=== PATIENT | male | born 1960 | race Caucasian/White ===

== ENCOUNTER → 2018-01-05 | Outpatient (CLI) | payer OTHER ==
[~2018-01-05] MED LIST: AMOX-559 PO; CEPH500C24 PO; CIPR-344 PO; DICL100G39 TOP; EZET1TAB53 PO; FLUT9.9S; GUAI120L3 PO; HYDR-4309 PO; KET10 PO; OMEP-218 PO; ONDA4TAB97 PO; OXYC-865 PO; SIMV-54 PO; TAMS0.4C70 PO
== END ==
LOC: SPU 08:23
DX: R97.20 Elevated prostate specific antigen [PSA] (principal)
CPT/HCPCS: 36415; 84153

== ENCOUNTER 2018-01-11 08:56 | Outpatient (RCR) | payer OTHER ==
[2017-11-16 08:26] VITALS: BP 124/74
--- NOTE | 2017-11-16 17:11 | ONCOLOGY FOLLOW UP NOTE ---
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 INTERIM HISTORY Rafa returns to clinic for a follow-up visit today. He is accompanied by his . In general, he reports that things are going quite well. Since our last visit, he underwent additional surgical resection with Dr. Salinas at the [facility], [facility]. In addition, he underwent HIPEC. He was in the hospital for about 10 days, and he has been home since that time. He feels that his recovery has been fairly uneventful. He is regaining strength and has returned to near-normal physical activity. He is starting to exercise more. He reports no problems with constipation or diarrhea. He denies abdominal pain. His appetite is good, and his weight has been stable. He has had no shortness of breath, chest pain, or cough. He is here with questions about his final pathology, as well as recommendations made from the GI Multidisciplinary Clinic at [facility]. REVIEW OF SYSTEMS Otherwise negative, and all systems were reviewed. ONCOLOGY HISTORY 1. 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 a. Initial presentation with urinary symptoms in 2016; subsequent diagnosis of urinary retention, placement of a catheter, and abdominal/pelvic imaging. b. January 23, 2017, CT abdomen and pelvis: Moderate distention of urinary bladder with probable associated mild dilation of ureters, prostatomegaly, enlarged appendix without evidence of acute inflammation; hypoattenuating structure near the tip of the appendix could represent small mucocele. c. June 23, 2017, CT abdomen and pelvis: No evidence of ureteral obstruction or stones, enlarged prostate gland; dilated appendix without inflammatory change; fluid density at tip of appendix once again noted, concerning for mucocele, although appendiceal neoplasm is not excluded. d. August 02, 2017: Patient undergoes appendectomy. Pathology: Appendectomy specimen reveals adenocarcinoma with signet ring cell and mucinous features, poorly differentiated, with appendiceal rupture and extramural mucin deposition; no definitive lymphovascular invasion; perineural invasion is identified; resection margin is indeterminate. e. September 30, 2017: Patient undergoes laparoscopic-assisted tumor debulking and HIPEC. 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 The proximal, distal, and mesenteric margins of resection were uninvolved. Thirty-three lymph nodes were negative for carcinoma. Background cecum and ilium with serosal adhesions were otherwise histologically unremarkable. The omentum showed no evidence of malignancy. Peritoneum of the right inguinal region via peritonectomy shows no viable metastatic carcinoma. Additional peritoneal samples reveal only a hyalinized nodule with entrapped smooth muscle elements with possible hamartoma or traumatic neuroma, but negative for metastatic carcinoma. A nodule of the transverse colon showed only mature lobulated adipose. Of note, his case was reviewed extensively at the GI Multidisciplinary Conference at the [facility], and although there had been some concern for M1 disease based on acellular tissue, the final staging of this tumor is pT4 pN0 M0. PAST MEDICAL HISTORY 1. Benign prostatic hyperplasia. 2. Hyperlipidemia. ALLERGIES TETRACYCLINE. SOCIAL HISTORY The patient is a nonsmoker, and he rarely drinks alcohol. There is no history of illicit drug use. He lives with his , who accompanies him today. They have three teenage children. FAMILY HISTORY The patient's father in his 80s. He had a history of diabetes, and reportedly of intracranial hemorrhage. His grandfather of colon cancer in his 60s. He has three children, including one 16-year-old as well as 13-year-old twins. VITAL SIGNS Temperature is 96.5, blood pressure 124/74, heart rate is 90, respirations 16, oxygen saturation 92% on room air. Weight is 79.8 kg. PHYSICAL EXAMINATION GENERAL: Patient is alert and oriented x3, in no apparent distress sitting in the exam room chair. He appears healthy. He is interactive and quite pleasant. HEENT: Exam reveals anicteric sclerae. No significant oropharyngeal lesions. SKIN: Exam reveals no concerning rash or lesions. NEUROLOGIC: Exam is grossly nonfocal and his gait is normal. EXTREMITIES: Exam reveals no edema, clubbing or cyanosis. There is no erythema or tenderness to palpation. LABORATORY STUDIES Reviewed per the [facility] and [facility] records. IMAGING AND PATHOLOGY Reviewed per the [facility] medical record. Please see Oncology History. 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 I had a good visit with Rafa and his today. Symptomatically, he is doing remarkably well. He has recovered in large part from his debulking surgery and HIPEC. We spent a good detail of time today discussing his pathology report, and recommendations made by the team at the [facility]. After extensive review, his final pathology from his recent surgery reveals evidence of pT4 N0 disease, with 33 lymph nodes removed. Although there had been some concern for potential M1 disease based on particular findings, the feeling is that his surgical specimen and presentation are most consistent with M0 disease. There had been some consideration of adjuvant systemic chemotherapy. At this point, the risk and toxicity of chemotherapy very likely outweighs any potential benefit that he could get from it. We discussed again the nature of this malignancy, and the fact that no lymph node involvement was found (which is not surprising), is encouraging. We moved on to discuss our plans for surveillance. He has had a repeat CT scan ordered for next month. I am not particularly certain whether he will be going to the [facility] for this CT scan. As discussed, we would be more than happy to have those performed here in [facility] [place], but we would want to have the results (both report and images) sent to Dr. Salinas for review. We will get this figured out in the interim. I would like to see him back for followup in two months after repeat labs to touch base and to be sure that things continue to go well. The patient and his had multiple insightful and appropriate questions for me today. I believe I answered all of their questions to their satisfaction. I spent a total of 30 minutes of time face to face with the patient today, and 25 minutes of this was spent in direct counseling and coordination of care. JACK
[2018-01-05 08:49] LABS: PLATELET COUNT, AUTOMATED 134 K/uL (150-450)
[2018-01-05 09:51] VITALS: BP 121/73
--- NOTE | 2018-01-05 16:29 | RADIOLOGY IMAGING REPORT ---
FACILITY: [facility] - [place] PATIENT NAME: Rafa Melgar : 1960 MR: [id number] V: [id number] EXAM DATE: ORDERING PHYSICIAN: VERITO YANES TECHNOLOGIST: Location: [facility] [place] Patient: Rafa Melgar : 1960 Visit/Account:[id number] Date of Sevice: 01/05/2018 EXAMINATION: CT Chest Without and With Contrast CT Abdomen Without and With Contrast CT Pelvis Without and With Contrast 01/05/2018 10:00 AM HISTORY: Appendix carcinoma. TECHNIQUE: Spiral scan was obtained through the chest, abdomen and pelvis before and during injecti on of nonionic iodinated intravenous contrast. Contrast: 75 mL of IV Isovue 370. One of the following dose optimization techniques was utilized in the performance of this exam: Autom ated exposure control; adjustment of the mA and/or kV according to the patient's size; or use of an i terative reconstruction technique. Specific details can be referenced in the facility's radiology C T exam operational policy. COMPARISON STUDIES: CT without contrast 06/23/2017. FINDINGS: CHEST: Lungs / pleura: negative Mediastinum / rom: negative Heart / pericardium: negative Vessels: negative Musculoskeletal / Body wall: negative Lymph node assessment: negative Lower neck: negative ABDOMEN AND PELVIS: Liver / biliary: There are a few geographically marginated areas of hyperenhancement along the junctu re of the right and left lobes superiorly and inferiorly as well as in the lateral segment of the lef t lobe. No well-defined metastatic lesion. Pancreas: negative Spleen: negative Adrenal glands: negative Kidneys / retroperitoneum: negative Pelvic structures: Slight prominence of the prostate again shown. Bowel / peritoneum / mesenteries: Status post resection along the cecal tip. No local residual/recur rent mass. No acute bowel finding otherwise. Mild diverticulosis of the descending and sigmoid colo n. No peritoneal/omental nodularity. No ascites. 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 Lymph node assessment: negative IMPRESSION: 1. Postsurgical changes along the cecal tip. No local residual or recurrent mass. 2. No evidence of metastatic disease in the chest, abdomen, or pelvis. Report Dictated By: Saqib Knapp MD at 01/05/2018 4:15 PM Report E-Signed By: Saqib Knapp MD at 01/05/2018 4:25 PM WSN:[email or web address]
[~2018-01-11] VITALS: Ht 185.4 cm; Wt 83.9 kg
[~2018-01-11 08:56] MED LIST changes: +IOPAMIDOL 76% 75 ML INFUS BTL 75 ML ONE
[2018-01-11 09:04] VITALS: BP 119/75
[2018-01-11] MEDS ORDERED: IBUP600T22 PO (09:07)
--- NOTE | 2018-01-11 17:56 | ONCOLOGY FOLLOW UP NOTE ---
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 INTERIM HISTORY Rafa returns to clinic for a follow-up visit today. He is accompanied by his . He reports that he has been doing quite well. He has been doing a lot of work, including very strenuous physical labor. He reports no abdominal pain or changes in bowel habits. His appetite is good, and his weight has been stable. He has had some ongoing musculoskeletal pain on and off. He denies shortness of breath, chest pain, and productive cough. For the most part, his energy is quite good. He denies new urinary symptoms. He has had a CT scan performed for surveillance after undergoing surgery and HIPEC, and he and his are here to review the results. REVIEW OF SYSTEMS Otherwise negative, and all systems were reviewed. ONCOLOGY HISTORY 1. 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 a. Initial presentation with urinary symptoms in 2016; subsequent diagnosis of urinary retention, placement of a catheter, and abdominal/pelvic imaging. b. January 23, 2017, CT abdomen and pelvis: Moderate distention of urinary bladder with probable associated mild dilation of ureters, prostatomegaly, enlarged appendix without evidence of acute inflammation; hypoattenuating structure near the tip of the appendix could represent small mucocele. c. June 23, 2017, CT abdomen and pelvis: No evidence of ureteral obstruction or stones, enlarged prostate gland; dilated appendix without inflammatory change; fluid density at tip of appendix once again noted, concerning for mucocele, although appendiceal neoplasm is not excluded. d. August 02, 2017: Patient undergoes appendectomy. Pathology: Appendectomy specimen reveals adenocarcinoma with signet ring cell and mucinous features, poorly differentiated, with appendiceal rupture and extramural mucin deposition; no definitive lymphovascular invasion; perineural invasion is identified; resection margin is indeterminate. e. September 30, 2017: Patient undergoes laparoscopic-assisted tumor debulking and HIPEC. 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 The proximal, distal, and mesenteric margins of resection were uninvolved. Thirty-three lymph nodes were negative for carcinoma. Background cecum and ilium with serosal adhesions were otherwise histologically unremarkable. The omentum showed no evidence of malignancy. Peritoneum of the right inguinal region via peritonectomy shows no viable metastatic carcinoma. Additional peritoneal samples reveal only a hyalinized nodule with entrapped smooth muscle elements with possible hamartoma or traumatic neuroma, but negative for metastatic carcinoma. A nodule of the transverse colon showed only mature lobulated adipose. Of note, his case was reviewed extensively at the GI Multidisciplinary Conference at the [facility], and although there had been some concern for M1 disease based on acellular tissue, the final staging of this tumor is pT4 pN0 M0. f. January 05, 2018, CT chest, abdomen and pelvis: Postsurgical changes along cecal tip, no local residual or recurrent mass. There is no evidence of metastatic disease in the chest, abdomen or pelvis. PAST MEDICAL HISTORY 1. Benign prostatic hyperplasia. 2. Hyperlipidemia. ALLERGIES TETRACYCLINE. SOCIAL HISTORY The patient is a nonsmoker, and he rarely drinks alcohol. There is no history of illicit drug use. He lives with his , who accompanies him today. They have three teenage children. FAMILY HISTORY The patient's father in his 80s. He had a history of diabetes, and reportedly of intracranial hemorrhage. His grandfather of colon cancer in his 60s. He has three children, including one 16-year-old as well as 13-year-old twins. MEDICATIONS 1. Ketoralac p.r.n. 2. Simvastatin 40 mg p.o. daily. 3. Tamsulosin 0.4 mg p.o. daily. VITAL SIGNS Temperature is 97.6, blood pressure 119/75, heart rate is 81, respirations 16, oxygen saturation 96% on room air. Weight is 83.9 kg. PHYSICAL EXAMINATION GENERAL: Patient is alert and oriented x3, in no apparent distress sitting in the exam room chair. He appears quite healthy and is in good spirits. HEENT: Exam reveals anicteric sclerae. SKIN: Exam reveals no concerning rash or lesion. NEUROLOGIC: Exam is grossly nonfocal and his gait is normal. EXTREMITIES: Exam reveals no edema, clubbing or cyanosis. There is no erythema or tenderness to palpation. LABORATORY STUDIES Reviewed per the [facility] record. IMAGING AND PATHOLOGY Please see Oncology History. 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 I had a good visit with Rafa and his today. Symptomatically, he continues to do quite well. He has no signs or symptoms to suggest recurrence of his appendiceal malignancy. He has been quite active. We spent time today reviewing his follow-up CT scan. This study shows no evidence of recurrence. He was very happy to hear this. We also reviewed his labs. These are entirely unremarkable. We moved on to discuss our plan for surveillance moving forward. I have recommended that he have repeat imaging with CT scan in three months, as well as labs, and to have him follow up with me to review the results. He is in agreement with this plan. JACK
== END 2018-01-11 15:07 | disposition home or self-care (01) ==
LOC: ONC 08:56
PROVIDERS: ATTEND Internal Medicine Medical Oncology
DX: Z85.89 Personal history of malignant neoplasm of other organs and systems (principal)
CPT/HCPCS: 36415; 71270; 72194; 74170; 82378; 85025; 86316; 99212; Q9967; 82040; 82247; 82310; 82374; 82435; 82565; 82947; 84075; 84132; 84155; 84295; 84450; 84460; 84520

== ENCOUNTER → 2018-04-17 | Outpatient (CLI) | payer OTHER ==
[~2018-04-17] MED LIST changes: +IBUP600T22 PO; -IOPAMIDOL 76% 75 ML INFUS BTL 75 ML ONE
--- NOTE | 2018-04-17 10:45 | RADIOLOGY IMAGING REPORT ---
FACILITY: [facility] [place] PATIENT NAME: Rafa Melgar : 1960 MR: [id number] V: [id number] EXAM DATE: ORDERING PHYSICIAN: KAYLYNN NELSON TECHNOLOGIST: Location: [facility] [place] Patient: Rafa Melgar : 1960 Visit/Account:[id number] Date of Sevice: 04/17/2018 US SINGLE ORGAN HISTORY: Incomplete bladder emptying COMPARISON: CT chest seven pelvis April 03, 2018 FINDINGS: Urinary bladder prevoid volume was 99 mL. The post void residual was 56 mL. Bilateral ureteral jets are present The prostate gland appears prominent and extremely heterogeneous IMPRESSION: Post void bladder residual 56 mL Prostate gland appears prominent and extremely heterogeneous Report Dictated By: Bria Zee MD at 04/17/2018 10:39 AM Report E-Signed By: Bria Zee MD at 04/17/2018 10:41 AM WSN:[id number]
== END ==
LOC: US 07:15
DX: N40.1 Benign prostatic hyperplasia with lower urinary tract symptoms (principal); R33.9 Retention of urine, unspecified
CPT/HCPCS: 76705

== ENCOUNTER 2018-05-04 08:50 | Outpatient (RCR) | payer OTHER ==
[2018-04-03 10:26] VITALS: BP 121/76
[2018-04-03 10:40] LABS: PLATELET COUNT, AUTOMATED 140 K/uL (150-450)
--- NOTE | 2018-04-03 15:37 | RADIOLOGY IMAGING REPORT ---
FACILITY: [facility] - [place] PATIENT NAME: Rafa Melgar : 1960 MR: [id number] V: [id number] EXAM DATE: ORDERING PHYSICIAN: VERITO YANES TECHNOLOGIST: Location: [facility] [place] Patient: Rafa Melgar : 1960 Visit/Account:[id number] Date of Sevice: 04/03/2018 CHEST/AB/PELV W/CONTRAST HISTORY: Appendix cancer ADDITIONAL HISTORY: None. TECHNIQUE: Following administration of IV contrast axial images acquired through the chest abdomen a nd pelvis during the portal venous phase. Coronal and sagittal reformatting was also performed. Dose Lowering Technique One of the following dose optimization techniques was utilized in the performance of this exam: Autom ated exposure control; adjustment of the mA and/or kV according to the patient's size; or use of an i terative reconstruction technique. Specific details can be referenced in the facility's radiology C T exam operational policy. CONTRAST: 75 mL Isovue-370 COMPARISON: January 05, 2018 FINDINGS: CHEST: Lungs/Pleura: Negative. Mediastinum/lymph nodes: Negative. Heart/vessels: Negative. Bones/soft tissues: Negative ABDOMEN AND PELVIS: Hepatobiliary: Negative. Spleen: Negative. Pancreas: Negative. Adrenals: Negative. Kidneys ureters and bladder : Negative. Genitalia: Prostate gland is mildly prominent and heterogeneous GI: Esophagus is distended with air and fluid suggesting gastroesophageal reflux. There are scatte red diverticula in the left-sided colon although no CT evidence of acute diverticulitis. There are p ostsurgical changes adjacent to the cecum Vessels/spaces/nodes: Negative. Bones/soft tissues: No aggressive appearing bone lesions. Spondylolysis at L5 with a grade 1 anteri or spondylolisthesis of L5 with respect S1 Additional findings: None pertinent. IMPRESSION: Post surgical changes adjacent to the cecum The esophagus is distended with fluid and air suggesting gastroesophageal reflux disease Diverticulosis left-sided colon although no CT evidence of acute diverticulitis Report Dictated By: Bria Zee MD at 04/03/2018 2:44 PM Report E-Signed By: Bria Zee MD at 04/03/2018 3:33 PM WSN:[email or web address]
[~2018-05-04 08:50] MED LIST changes: +DEXTROSE 5%(*) 100 ML BAG 100 ML IVPB PRN; +IOPAMIDOL 76% 75 ML INFUS BTL 0 ML ONE; +IOPAMIDOL 76% 75 ML INFUS BTL 75 ML ONE; +LIDOCAINE/SOD BICARB 8.4% SYR ID PRN; +NS(*) 0.9% 100 ML BAG 100 ML IVPB PRN
[2018-05-04 08:57] VITALS: BP 119/67
--- NOTE | 2018-05-04 18:40 | ONCOLOGY FOLLOW UP NOTE ---
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 INTERIM HISTORY Rafa returns to clinic for a follow-up visit today. He is accompanied by his . Since our last visit, he feels that he has been doing pretty well in general. He reports that he has had some stress at home, but this has been manageable. He continues to stay quite busy. His is concerned that he is potentially having a little bit more problem with his memory over time. Rafa is not particularly concerned about this, however. He reports no new pain. His appetite is good, and his weight has been stable. He has had no recent changes in his bowel habits. He denies melena and hematochezia. His breathing is comfortable. He tends to sleep fairly well. He has undergone a follow-up CT scan and labs, and he is here to review the results. REVIEW OF SYSTEMS Otherwise negative, and all systems were reviewed. ONCOLOGY HISTORY 1. 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 a. Initial presentation with urinary symptoms in 2016; subsequent diagnosis of urinary retention, placement of a catheter, and abdominal/pelvic imaging. b. January 23, 2017, CT abdomen and pelvis: Moderate distention of urinary bladder with probable associated mild dilation of ureters, prostatomegaly, enlarged appendix without evidence of acute inflammation; hypoattenuating structure near the tip of the appendix could represent small mucocele. c. June 23, 2017, CT abdomen and pelvis: No evidence of ureteral obstruction or stones, enlarged prostate gland; dilated appendix without inflammatory change; fluid density at tip of appendix once again noted, concerning for mucocele, although appendiceal neoplasm is not excluded. d. August 02, 2017: Patient undergoes appendectomy. Pathology: Appendectomy specimen reveals adenocarcinoma with signet ring cell and mucinous features, poorly differentiated, with appendiceal rupture and extramural mucin deposition; no definitive lymphovascular invasion; perineural invasion is identified; resection margin is indeterminate. e. September 30, 2017: Patient undergoes laparoscopic-assisted tumor debulking and HIPEC. 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 The proximal, distal, and mesenteric margins of resection were uninvolved. Thirty-three lymph nodes were negative for carcinoma. Background cecum and ilium with serosal adhesions were otherwise histologically unremarkable. The omentum showed no evidence of malignancy. Peritoneum of the right inguinal region via peritonectomy shows no viable metastatic carcinoma. Additional peritoneal samples reveal only a hyalinized nodule with entrapped smooth muscle elements with possible hamartoma or traumatic neuroma, but negative for metastatic carcinoma. A nodule of the transverse colon showed only mature lobulated adipose. Of note, his case was reviewed extensively at the GI Multidisciplinary Conference at the [facility], and although there had been some concern for M1 disease based on acellular tissue, the final staging of this tumor is pT4 pN0 M0. f. January 05, 2018, CT chest, abdomen and pelvis: Postsurgical changes along cecal tip, no local residual or recurrent mass. There is no evidence of metastatic disease in the chest, abdomen or pelvis. g. April 03, 2018, CT chest, abdomen and pelvis: Post surgical changes adjacent to cecum. The esophagus is distended with fluid and air, suggesting gastroesophageal reflux disease. Diverticulosis of the left-sided colon without CT evidence of acute diverticulitis. PAST MEDICAL HISTORY 1. Benign prostatic hyperplasia. 2. Hyperlipidemia. ALLERGIES TETRACYCLINE. SOCIAL HISTORY The patient is a nonsmoker, and he rarely drinks alcohol. There is no history of illicit drug use. He lives with his , who accompanies him today. They have three teenage children. FAMILY HISTORY The patient's father in his 80s. He had a history of diabetes, and reportedly of intracranial hemorrhage. His grandfather of colon cancer in his 60s. He has three children, including one 16-year-old as well as 13-year-old twins. MEDICATIONS 1. Ketoralac p.r.n. 2. Simvastatin 40 mg p.o. daily. 3. Tamsulosin 0.4 mg p.o. daily. VITAL SIGNS Temperature is 97.3, blood pressure 119/67, heart rate is 75, respirations 16, oxygen saturation 95% on room air. PHYSICAL EXAMINATION GENERAL: Patient is alert and oriented x3, in no apparent distress sitting in the exam room chair. He appears healthy. He is in good spirits, and quite interactive. HEENT: Exam reveals anicteric sclerae. SKIN: Exam reveals no concerning rash or lesion. NEUROLOGIC: Exam is grossly nonfocal and his gait is normal. LABORATORY STUDIES Reviewed per the [facility] record. His CEA level on April 03 was 3.5. Serum chromogranin level was 70. Both normal. IMAGING Please see Oncology History. 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 Rafa continues to do quite well from an oncologic standpoint. We spent time today reviewing his labs and imaging from March. His tumor markers are unremarkable, and his CT scan shows no evidence of disease recurrence. He was very happy to hear this. Clinically, he seems to be doing great with the exception of some stress at home, as well as some possible early cognitive changes. I have asked him to discuss these issues further with Carmella Quan, his primary care provider. We discussed the plan for ongoing surveillance. He will have a repeat CT scan of the chest, abdomen and pelvis in three months, as well as repeat labs. I will plan to see him thereafter. I would be more than happy to see him sooner if there are questions are concerns. We also discussed the esophageal findings on his CT scan. We discussed the utility of EGD evaluation. He does have a history of GERD symptoms, but these have been quiescent for some time. Rafa and his had several additional questions for me today, and I believe I answered all of their questions to their satisfaction. [facility]
== END 2018-05-12 09:50 | disposition home or self-care (01) ==
LOC: ONC 08:50
PROVIDERS: ATTEND Internal Medicine Medical Oncology
DX: C25.9 Malignant neoplasm of pancreas, unspecified (principal); C18.1 Malignant neoplasm of appendix; K57.30 Diverticulosis of large intestine without perforation or abscess without bleeding; E78.5 Hyperlipidemia, unspecified
CPT/HCPCS: 36415; 71260; 74177; 82378; 85025; 86316; 99212; Q9967; 82040; 82247; 82310; 82374; 82435; 82565; 82947; 84075; 84132; 84155; 84295; 84450; 84460; 84520

== ENCOUNTER → 2018-07-20 | Outpatient (CLI) | payer OTHER ==
[~2018-07-20] MED LIST changes: -DEXTROSE 5%(*) 100 ML BAG 100 ML IVPB PRN; +DIPH0.5D12 IM; +FLU60SYR36 IM; -IOPAMIDOL 76% 75 ML INFUS BTL 0 ML ONE; -IOPAMIDOL 76% 75 ML INFUS BTL 75 ML ONE; -LIDOCAINE/SOD BICARB 8.4% SYR ID PRN; -NS(*) 0.9% 100 ML BAG 100 ML IVPB PRN; +TETA0.5V12 IM; +VARI50KI IM
[2018-07-20 09:43] LABS: PLATELET COUNT, AUTOMATED 144 K/uL (150-450)
[2018-07-20 09:56] LABS: LDL CHOLESTEROL 24 mg/dl
== END ==
LOC: LAB 09:27
PROVIDERS: ATTEND Nurse Practitioner Family
DX: E78.5 Hyperlipidemia, unspecified (principal); Z79.899 Other long term (current) drug therapy
CPT/HCPCS: 36415; 82040; 82247; 82310; 82374; 82435; 82465; 82565; 82947; 83718; 84075; 84132; 84155; 84295; 84443; 84450; 84460; 84478; 84520; 85025

== ENCOUNTER → 2018-07-28 | Outpatient (CLI) | payer OTHER | LOC: LAB 10:57 | DX: R97.20 Elevated prostate specific antigen [PSA] (principal) | CPT/HCPCS: 36415; 84153 ==

== ENCOUNTER 2018-08-16 08:24 | Outpatient (RCR) | payer OTHER ==
[2018-08-09 08:29] LABS: PLATELET COUNT, AUTOMATED 139 K/uL (150-450)
--- NOTE | 2018-08-09 16:29 | RADIOLOGY IMAGING REPORT ---
FACILITY: [facility] PATIENT NAME: Rafa Melgar : 1960 MR: [id number] V: [id number] EXAM DATE: ORDERING PHYSICIAN: VERITO YANES TECHNOLOGIST: [place] [facility] [place]a Mel[place] : 1960 Visit/Account:[id number] Date of Sevice: 08/09/2018 CHEST/AB/PELV W/CONTRAST HISTORY: History of cancer the appendix, removed one year ago, follow-up ADDITIONAL HISTORY: None. TECHNIQUE: Following administration of IV contrast axial images acquired through the chest abdomen a nd pelvis during the portal venous phase. Coronal and sagittal reformatting was also performed.Dose Lowering Technique One of the following dose optimization techniques was utilized in the performance of this exam: Autom ated exposure control; adjustment of the mA and/or kV according to the patient's size; or use of an i terative reconstruction technique. Specific details can be referenced in the facility's radiology C T exam operational policy. CONTRAST: 75 mL Isovue-370 COMPARISON: April 03, 2018 FINDINGS: CHEST: Lungs/Pleura: Negative. Mediastinum/lymph nodes: Negative. Heart/vessels: Negative. Bones/soft tissues: No aggressive appearing bone lesions are seen ABDOMEN AND PELVIS: Hepatobiliary: Negative. Spleen: Negative. Pancreas: Negative. Adrenals: Negative. Kidneys ureters and bladder : Negative. Genitalia: Prostate gland is mildly prominent and heterogeneous containing coarse calcifications impi nging upon the floor the bladder GI: Esophagus again appears very distended with air and fluid possibly related to gastroesophageal reflux disease. Clinical correlation needed is diverticulosis left-sided colon although no CT eviden ce of acute diverticulitis postsurgical changes adjacent to the cecum also again seen Vessels/spaces/nodes: Negative. Bones/soft tissues: Again noted are bilateral pars defects at L5 with a grade 1 anterior listhesis o f L5 with respect S1 and moderate disc space narrowing at this level. There is sclerosis seen along the inferior aspect of the left sacral david likely degenerative in nature and appears stable when com pared to the prior study. No aggressive appearing bone lesions are seen Additional findings: None pertinent. IMPRESSION: Again noted are postsurgical changes adjacent to the cecum related to patient's history of appendicea l cancer. No evidence of metastatic disease in the chest abdomen or pelvis Esophagus again appears very distended and filled with air and fluid which may be related to gastroes ophageal reflux disease. Clinical correlation needed Additional chronic findings as described Report Dictated By: Bria Zee MD at 08/09/2018 4:06 PM Report E-Signed By: Bria Zee MD at 08/09/2018 4:25 PM WSN:[email or web address]
[~2018-08-16 08:24] MED LIST changes: +DEXTROSE 5%(*) 100 ML BAG 100 ML IVPB PRN; -HYDR-4309 PO; +HYDR-653 PO; +IOPAMIDOL 76% 75 ML INFUS BTL 75 ML ONE; +LIDOCAINE/SOD BICARB 8.4% SYR ID PRN; +NS(*) 0.9% 100 ML BAG 100 ML IVPB PRN
[2018-08-16 08:31] VITALS: BP 129/75
--- NOTE | 2018-08-16 15:05 | ONCOLOGY FOLLOW UP NOTE ---
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 INTERIM HISTORY Rafa returns to clinic for a followup visit today. He is accompanied by his . Since our last visit, he reports that he has been feeling quite well. He has some usual musculoskeletal aches and pains, mostly joint pain. This has not worked. He reports no abdominal pain or changes in bowel habits. He has had no new urinary symptoms. He reports no shortness of breath or chest pain. In general, he feels quite good. He has undergone a followup CT scan as well as laboratory studies, and he and his are here to review the results. REVIEW OF SYSTEMS Otherwise negative in all systems reviewed. 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 a. Initial presentation with urinary symptoms in spring 2016. Subsequent diagnosis of urinary retention, placement of a catheter, and abdominal/pelvic imaging. b. January 23, 2017, CT abdomen and pelvis: Moderate distention of urinary bladder with probable associated mild dilation of ureters, prostatomegaly, enlarged appendix without evidence of acute inflammation. Hypoattenuating structure near the tip of the appendix could represent small mucocele. c. June 23, 2017, CT abdomen and pelvis: No evidence of ureteral obstruction or stones. Enlarged prostate gland. Dilated appendix without inflammatory change. Fluid density at tip of appendix once again noted, concerning for mucocele, although appendiceal neoplasm is not excluded. d. August 02, 2017: Patient undergoes appendectomy. Pathology: Appendectomy specimen reveals adenocarcinoma with signet ring cell and mucinous features, poorly differentiated, with appendiceal rupture and extramural mucin deposition. No definitive lymphovascular invasion. Perineural invasion is identified. Resection margin is indeterminate. e. September 30, 2017: Patient undergoes laparoscopic-assisted tumor debulking and HIPEC. 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 The proximal, distal, and mesenteric margins of resection were uninvolved. Thirty-three lymph nodes were negative for carcinoma. Background cecum and ilium with serosal adhesions were otherwise histologically unremarkable. The omentum showed no evidence of malignancy. Peritoneum of the right inguinal region via peritonectomy shows no viable metastatic carcinoma. Additional peritoneal samples reveal only a hyalinized nodule with entrapped smooth muscle elements with possible hamartoma or traumatic neuroma, but negative for metastatic carcinoma. A nodule of the transverse colon showed only mature lobulated adipose. Of note, his case was reviewed extensively at the GI Multidisciplinary Conference at the [facility], and although there had been some concern for M1 disease based on acellular tissue, the final staging of this tumor is pT4 pN0 M0. f. January 05, 2018, CT chest, abdomen, and pelvis: Postsurgical changes along cecal tip. No local residual or recurrent mass. There is no evidence of metastatic disease in the chest, abdomen, or pelvis. g. April 03, 2018, CT chest, abdomen, and pelvis: Postsurgical changes adjacent to cecum. The esophagus is distended with fluid and air, suggesting gastroesophageal reflux disease. Diverticulosis of the left-sided colon without CT evidence of acute diverticulitis. h. 07/20/2018, CT chest, abdomen, and pelvis: Postsurgical changes adjacent to the cecum, related to patient's history of appendiceal cancer. No evidence of metastatic disease in the chest, abdomen, or pelvis. The esophagus again appears distended and filled with air and fluid. PAST MEDICAL HISTORY 1. Benign prostatic hyperplasia. 2. Hyperlipidemia. ALLERGIES TETRACYCLINE. SOCIAL HISTORY The patient is a nonsmoker, and he rarely drinks alcohol. There is no history of illicit drug use. He lives with his , who accompanies him today. They have three teenage children. FAMILY HISTORY The patient's father in his 80s. He had a history of diabetes and reportedly of intracranial hemorrhage. His grandfather of colon cancer in his 60s. He has three children including one 16-year-old as well as 13-year-old twins. MEDICATIONS 1. Ketoralac p.r.n. 2. Simvastatin 40 mg p.o. daily. 3. Tamsulosin 0.4 mg p.o. daily. VITAL SIGNS Temperature is 96.7, blood pressure 129/75, heart rate is 89, respirations 16, oxygen saturation 94% on room air. Weight is 83.6 kg. PHYSICAL EXAMINATION GENERAL: Patient is alert and oriented times three, in no apparent distress, sitting in the exam room chair. He appears healthy. He is in good spirits and quite interactive. HEENT: Anicteric sclerae. NEUROLOGIC: Grossly nonfocal, and his gait is normal. EXTREMITIES: No edema, clubbing, or cyanosis. SKIN: Cursory skin exam reveals no concerning rash or lesion. LABORATORY STUDIES Reviewed per the [facility] record. Notably, his CEA has again slightly gone up from 3.5 in March, now to 4.2. IMAGING Please see Oncology History. ASSESSMENT AND PLAN Signet ring cell adenocarcinoma of appendix. I had a good visit with Rafa and his today. Symptomatically, he continues to do remarkably well. He has no signs or symptoms to suggest recurrence of his appendiceal cancer. We spent time today reviewing his imaging. His CT scan is certainly encouraging. His CEA has gone up slightly over the past several checks. I do think it would be quite worthwhile for him to consider repeat colonoscopy. He is now about 10 months out from completion of treatment. The patient understands the rationale for this recommendation. We had previously also discussed the findings in his esophagus, which have been relatively stable over time. With these findings, I would certainly not be opposed to EGD evaluation of the upper GI tract. We spent some time discussing the CEA elevation, and although there does seem to be somewhat of a trend forming, his CEA remains low. If there are no concerning findings on his colonoscopy, I will ask him to come back to see me again in three months after a repeat CT scan of the chest, abdomen, and pelvis, as well as labs including CEA. Patient and his had several additional questions for me today. I believe I answered all their questions to their satisfaction. [facility]
[2018-11-08] MEDS ORDERED: SIMV-49 PO (13:27)
== END 2018-11-07 ==
LOC: ONC 08:24
PROVIDERS: ATTEND Internal Medicine Medical Oncology
DX: C18.1 Malignant neoplasm of appendix (principal); R11.0 Nausea
CPT/HCPCS: 36415; 71260; 74177; 82378; 85025; 99212; Q9967; 82040; 82247; 82310; 82374; 82435; 82565; 82947; 84075; 84132; 84155; 84295; 84450; 84460; 84520

== ENCOUNTER 2018-11-22 01:19 | Day surgery (SDC) | payer OTHER ==
[~2018-11-22] VITALS: Ht 188 cm; Wt 77.6 kg
[~2018-11-22 01:19] MED LIST changes: -DEXTROSE 5%(*) 100 ML BAG 100 ML IVPB PRN; -IOPAMIDOL 76% 75 ML INFUS BTL 75 ML ONE; -LIDOCAINE/SOD BICARB 8.4% SYR ID PRN; -NS(*) 0.9% 100 ML BAG 100 ML IVPB PRN; +SIMV-49 PO
[2018-11-22 09:32] VITALS: BP 120/77
[2018-11-22] MEDS ORDERED: PROPOFOL EMUL(*) 10MG/ML 20 ML 60 ML ONE (10:52)
[2018-11-22 11:35] VITALS: BP 90/59
[2018-11-22] MEDS ORDERED: LIDOCAINE/SOD BICARB 8.4% SYR ID ONE (11:40)
[2018-11-22] MEDS ORDERED: NORMOSOL R SOLN(*) 1000 ML BAG 1,000 ML IV PRN (11:40)
--- NOTE | 2018-11-22 11:43 | NUR ---
1135 SBAR REPORT WAS RECEIVED FROM DR. FAJARDO AND HERMES PINEDA. PATIENT IS BREATHING SPONTANEOUSLY AT MODERATE RATE AND DEPTH. LUNGS ARE CLEAR. HE IS ON 3 LITERS OXYMASK. BOWEL SOUNDS ARE HYPERACTIVE BOWEL. UNABLE TO ASSESS PAIN OR NAUSEA. IS IN THE ROOM. 1145 PATIENT CONTINUES TO SLEEP AT THIS TIME
[2018-11-22 11:45] VITALS: BP 91/59
--- NOTE | 2018-11-22 11:45 | Short(Outpt) Discharge Summary ---
Discharge Summary Reason for Hosp/Final Diag: (1) Dilation of esophagus Status: Chronic Hospital Course & Plan: EGD completed without problems. Normal. (2) Mucinous adenocarcinoma of appendix Status: Chronic Hospital Course & Plan: Colonoscopy with biopsies of anastomosis and polypectomy x1 completed without problems. (3) History of right hemicolectomy Status: Chronic (4) Family history of colon cancer Departure Discharge to: Home, Self Care Discharge Instructions Home Meds Active Scripts Varicella-Zoster Ge/As01b/Pf (Shingrix Vial Kit) 50 Mcg/0.5 Ml Kit, 0.5 ML IM ONCE, #1 KIT 1 Refill administer 1 - 0.5ml Im injection x 1 now and 1 - 0.5ml Im injection x 1 in 2-6 months Prov:TIM TRACEY APRN CLINICAL NURSE OCCUPATIONAL MEDICINE-C 07/20/18 Reported Medications Simvastatin (SIMVASTATIN) 20 Mg Tablet, 20 MG PO 3XW, TAB 11/08/18 Ibuprofen (IBUPROFEN) 600 Mg Tablet, 1 TAB PO PRN, TAB 01/11/18 Tamsulosin Hcl (TAMSULOSIN HCL) 0.4 Mg Cap.er.24h, 1 TAB PO DAILY, #30 02/07/17 Diet: Regular Activity: As Tolerated Special Instructions: Your upper endoscopy and colonoscopy were completed without problems and your prep was excellent (Good Job!!). I didn't find any abnormalities in your upper GI tract and the only abnormality that I saw in your colon was a small polyp which I removed. I also biopsied the anastomosis (the connection between your small intestine and your colon) even though it looked normal just to ensure there are no microscopic cancer cells. My office will call you in the next week or two and let you know what the polyp and biopsies reveal. I recommend that you undergo another colonoscopy in 1 year and if normal then again 3 years later and then, if normal, every 5 years thereafter for continued cancer surveillance. CORBIN DAVEY MD Nov 22, 2018 11:45
[2018-11-22 12:00] VITALS: BP 92/67
[2018-11-22 12:30] VITALS: BP 98/68
[2018-11-22 12:35] VITALS: BP 95/75
--- NOTE | 2018-11-22 12:50 | NUR ---
1200 PATIENT BEGAN TO WAKE UP. HE WAS MOVED TO A SEMIFOWLERS POSITION AND MOVED TO ROOM AIR. HE IS TOLERATING THIS WELL. 1205 PATIENT BEGAN DRINKING WATER 1221 WENT OVER DC INSTRUCTIONS WITH PATIENT AND FAMILY. THEY VERBALIZED UNDERSTANDING 1230 BEGAN DOING ORTHOSTATICS WITH PATIENT. PATIENT DENIES ANY DIZZINESS OR LIGHTHEADEDNESS 1235 PATIENT WAS STABLE ON HIS FEET 1240 IV WAS SALINE LOCKED 1241 PATIENT BEGAN GETTING DRESSED 1245 IV WAS DC'D WITH CATH INTACT 1250 PATIENT WAS TAKEN OUT. HE WAS AMBULATORY ON DISCHARGE. LUNGS ARE CLEAR. BOWEL SOUNDS ARE ACTIVE. DENIES ANY PAIN, NAUSEA, DIZZINESS, OR LIGHTHEADEDNESS. SEE DISCHARGE ASSESSMENT.
== END 2018-11-22 12:50 | disposition home or self-care (01) ==
LOC: OR 01:19
PROVIDERS: ATTEND Surgery
DX: Z12.11 Encounter for screening for malignant neoplasm of colon (principal); D12.3 Benign neoplasm of transverse colon; Z80.0 Family history of malignant neoplasm of digestive organs; K44.9 Diaphragmatic hernia without obstruction or gangrene
CPT/HCPCS: 00813; 43235; 45380; 88305; J2704

== ENCOUNTER 2018-12-13 07:51 | Outpatient (RCR) | payer OTHER ==
[2018-11-29 08:33] VITALS: BP 128/80
[2018-11-29 08:40] LABS: PLATELET COUNT, AUTOMATED 144 K/uL (150-450)
--- NOTE | 2018-11-29 12:56 | RADIOLOGY IMAGING REPORT ---
FACILITY: [facility] [place] PATIENT NAME: Rafa Melgar : 1960 MR: [id number] V: [id number] EXAM DATE: ORDERING PHYSICIAN: VERITO YANES TECHNOLOGIST: Location: [facility] Patient: Rafa Melgar : 1960 Visit/Account:[id number] Date of Sevice: 11/29/2018 CT CHEST ABDOMEN PELVIS W & W/O HISTORY: History of appendiceal carcinoma ADDITIONAL HISTORY: None. TECHNIQUE: Axial images acquired through the chest abdomen and pelvis with and without IV contrast. Contrast acquisition obtained During the portal venous phase. Coronal and sagittal reformatting was also performed. One of the following dose optimization techniques was utilized in the performance of this exam: Automated exposure control; adjustment of the mA and/or kV according to the patient's siz e; or use of an iterative reconstruction technique. Specific details can be referenced in the [facility]'s radiology CT exam operational policy. CONTRAST: 70 mL Isovue-370 COMPARISON: 08/09/2018 CT chest abdomen pelvis negative for metastatic disease FINDINGS: CHEST: Lungs/Pleura: Negative. No evidence of pulmonary nodules. Mediastinum/lymph nodes:.No evidence of adenopathy. Again seen is a fluid-filled esophagus on the po stcontrast images only unchanged from the previous examination. Transient nature compatible with gas troesophageal reflux. Heart/vessels: Negative. Bones/soft tissues: Negative ABDOMEN AND PELVIS: Hepatobiliary: Negative. Spleen: Negative. Pancreas: Negative. Adrenals: Negative. Kidneys ureters and bladder : Negative. Genitalia: Negative. GI: Postoperative changes seen in the cecum with suture material. No evidence of focal recurrence. This is unchanged from previous study. Sparse colonic diverticuli seen in this sigmoid and descend ing colon. Vessels/spaces/nodes: Negative. Bones/soft tissues: There is L5-S1 spondylolysis with 1 cm anterolisthesis Additional findings: None pertinent. IMPRESSION: Postoperative changes in the cecum are stable. No evidence of metastatic disease. L5-S1 spondylolysis with grade 1 spondylolisthesis. Mild colonic diverticulosis. Evidence of gastroesophageal reflux. Report Dictated By: Rk Lyons MD at 11/29/2018 12:40 PM Report E-Signed By: Rk Lyons MD at 11/29/2018 12:51 PM WSN:[id number]
[~2018-12-13 07:51] MED LIST changes: +DEXTROSE 5%(*) 100 ML BAG 100 ML IVPB PRN; -DIPH0.5D12 IM; +DIPH0.5S2 IM; +IOPAMIDOL 61% 75 ML INFUS BTL 75 ML ONE; +LIDOCAINE/SOD BICARB 8.4% SYR ID PRN; +NS(*) 0.9% 100 ML BAG 100 ML IVPB PRN
[2018-12-13 08:12] VITALS: BP 124/72
--- NOTE | 2018-12-13 10:13 | ONCOLOGY FOLLOW UP NOTE ---
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 INTERIM HISTORY Rafa returns to clinic for a followup visit today. He is accompanied by his . He has been doing pretty well in general since our last visit. He has no knew symptoms to report. Specifically, he denies abdominal pain and changes in bowel habits. He has had no urinary symptoms. He reports no shortness of breath, chest pain or cough. He has had no fever. His appetite tends to be pretty good. He remains quite active. His agrees that he seems to be doing quite well but there have historically been some concerns about cognitive issues in members of Rafa's family. Rafa does admit to being a little bit more forgetful at times but that he is not particularly concerned about this. He has had a follow up CT scan as well as labs. They are here to review the results. REVIEW OF SYSTEMS Otherwise negative in all systems reviewed. 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 a. Initial presentation with urinary symptoms in spring 2016. Subsequent diagnosis of urinary retention, placement of a catheter, and abdominal/pelvic imaging. b. January 23, 2017, CT abdomen and pelvis: Moderate distention of urinary bladder with probable associated mild dilation of ureters, prostatomegaly, enlarged appendix without evidence of acute inflammation. Hypoattenuating structure near the tip of the appendix could represent small mucocele. c. June 23, 2017, CT abdomen and pelvis: No evidence of ureteral obstruction or stones. Enlarged prostate gland. Dilated appendix without inflammatory change. Fluid density at tip of appendix once again noted, concerning for mucocele, although appendiceal neoplasm is not excluded. d. August 02, 2017: Patient undergoes appendectomy. Pathology: Appendectomy specimen reveals adenocarcinoma with signet ring cell and mucinous features, poorly differentiated, with appendiceal rupture and extramural mucin deposition. No definitive lymphovascular invasion. Perineural invasion is identified. Resection margin is indeterminate. e. September 30, 2017: Patient undergoes laparoscopic-assisted tumor debulking and HIPEC. 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 The proximal, distal, and mesenteric margins of resection were uninvolved. Thirty-three lymph nodes were negative for carcinoma. Background cecum and ilium with serosal adhesions were otherwise histologically unremarkable. The omentum showed no evidence of malignancy. Peritoneum of the right inguinal region via peritonectomy shows no viable metastatic carcinoma. Additional peritoneal samples reveal only a hyalinized nodule with entrapped smooth muscle elements with possible hamartoma or traumatic neuroma, but negative for metastatic carcinoma. A nodule of the transverse colon showed only mature lobulated adipose. Of note, his case was reviewed extensively at the GI Multidisciplinary Conference at the [facility], and although there had been some concern for M1 disease based on acellular tissue, the final staging of this tumor is pT4 pN0 M0. f. January 05, 2018, CT chest, abdomen, and pelvis: Postsurgical changes along cecal tip. No local residual or recurrent mass. There is no evidence of metastatic disease in the chest, abdomen, or pelvis. g. April 03, 2018, CT chest, abdomen, and pelvis: Postsurgical changes adjacent to cecum. The esophagus is distended with fluid and air, suggesting gastroesophageal reflux disease. Diverticulosis of the left-sided colon without CT evidence of acute diverticulitis. h. 07/20/2018, CT chest, abdomen, and pelvis: Postsurgical changes adjacent to the cecum, related to patient's history of appendiceal cancer. No evidence of metastatic disease in the chest, abdomen, or pelvis. The esophagus again appears distended and filled with air and fluid. i. November 29, 2018, CT chest, abdomen and pelvis: Postoperative changes in cecum are stable. No evidence of metastatic disease. L5-S1 spondylosis with grade 1 spondylolisthesis. Mild colonic diverticulosis, evidence of gastroesophageal reflux. PAST MEDICAL HISTORY 1. Benign prostatic hyperplasia. 2. Hyperlipidemia. ALLERGIES TETRACYCLINE. SOCIAL HISTORY The patient is a nonsmoker, and he rarely drinks alcohol. There is no history of illicit drug use. He lives with his , who accompanies him today. They have three teenage children. FAMILY HISTORY The patient's father in his 80s. He had a history of diabetes and reportedly of intracranial hemorrhage. His grandfather of colon cancer in his 60s. He has three children including one 16-year-old as well as 13-year-old twins. MEDICATIONS 1. Ketoralac p.r.n. 2. Simvastatin 40 mg p.o. daily. 3. Tamsulosin 0.4 mg p.o. daily. VITAL SIGNS Temperature is 97.5, blood pressure 112/73, heart rate is 81, respirations 16, oxygen saturation 96% on room air. PHYSICAL EXAMINATION GENERAL: Patient is alert and oriented x3, in no apparent distress, sitting in the exam room chair. He appears healthy. He is in good spirits. HEENT: Anicteric sclerae. No significant oropharyngeal lesion. NEUROLOGIC: Grossly nonfocal and his gait is normal. SKIN: No concerning rash or lesion. EXTREMITIES: No edema, clubbing or cyanosis. There is no erythema or tenderness to palpation. LABORATORY STUDIES Reviewed per the [facility] record. His CEA has come down again to 3. IMAGING Please see Oncology History. ASSESSMENT AND PLAN Signet ring cell adenocarcinoma of appendix. Rafa continues to do remarkably well. He has no concerning signs or symptoms to suggest recurrence of his appendiceal adenocarcinoma. We spent time reviewing his recent colonoscopy and EGD as well as CT and labs. EGD was revealing of a hiatal hernia but no other concerning findings. There was a polyp removed at the time of his colonoscopy. His CT scan shows no evidence of disease recurrence. His CEA is again normal. As discussed, all of these factors rita well prognostically and he continues to eat well and exercise regularly. We spent further time today discussing our ongoing surveillance plan. He will have repeat labs performed in three months. If these look good, he can hold off on imaging until this summer. Assuming that this will be the case, I will plan to see him back in May after repeat labs, including CEA as well as CT scan of the chest, abdomen and pelvis. All questions answered today. I spent a total of 30 minutes of time face to face with the patient and his today and 25 minutes of this was spent in direct counseling and coordination of care. JACK
== END 2019-02-07 12:26 | disposition home or self-care (01) ==
LOC: ONC 07:51
PROVIDERS: ATTEND Internal Medicine Medical Oncology
DX: C18.1 Malignant neoplasm of appendix (principal); C25.9 Malignant neoplasm of pancreas, unspecified
CPT/HCPCS: 36415; 71270; 74178; 82378; 85025; 99212; Q9967; 82040; 82247; 82310; 82374; 82435; 82565; 82947; 84075; 84132; 84155; 84295; 84450; 84460; 84520

== ENCOUNTER 2019-03-13 11:25 | Outpatient (RCR) | payer OTHER ==
[~2019-03-13 11:25] MED LIST changes: -DEXTROSE 5%(*) 100 ML BAG 100 ML IVPB PRN; -IOPAMIDOL 61% 75 ML INFUS BTL 75 ML ONE; -LIDOCAINE/SOD BICARB 8.4% SYR ID PRN; -NS(*) 0.9% 100 ML BAG 100 ML IVPB PRN
[2019-03-13 12:00] LABS: PLATELET COUNT, AUTOMATED 138 K/uL (150-450)
== END 2019-04-16 11:35 | disposition home or self-care (01) ==
LOC: SPU 11:25
PROVIDERS: ATTEND Internal Medicine Medical Oncology
DX: C18.1 Malignant neoplasm of appendix (principal)
CPT/HCPCS: 36415; 82040; 82247; 82310; 82374; 82378; 82435; 82565; 82947; 84075; 84132; 84155; 84295; 84450; 84460; 84520; 85025